=== PATIENT | female | born 1985 | race Caucasian/White ===

== ENCOUNTER 2019-04-11 11:54 | Emergency (ER) | payer OTHER ==
[~2019-04-11] VITALS: Ht 167.6 cm; Wt 80.9 kg
[2019-04-11 12:04] VITALS: BP 130/76
[2019-04-11] MEDS ORDERED: CEPH250T PO (13:40)
== END 2019-04-11 13:49 | disposition home or self-care (01) ==
LOC: ER 11:55
DX: S69.81XA Other specified injuries of right wrist, hand and finger(s), initial encounter (principal); Z88.1 Allergy status to other antibiotic agents; Z88.5 Allergy status to narcotic agent; Z79.2 Long term (current) use of antibiotics; X58.XXXA Exposure to other specified factors, initial encounter; Y93.89 Activity, other specified; Y92.89 Other specified places as the place of occurrence of the external cause; Y99.8 Other external cause status
CPT/HCPCS: 29280; 29540; 99283